=== PATIENT | female | born 1940 | race Caucasian/White ===

== ENCOUNTER 2017-03-17 12:54 | Emergency (ER) | payer MEDICARE, BC ==
[~2017-03-17] VITALS: Ht 162.6 cm; Wt 56.7 kg
[~2017-03-17 12:54] MED LIST: ASPI81TA2 PO; BACL10TA PO; CARB-93 PO; CARV6.25 PO; FLUO-120 PO; LEVO25TA7 PO; MEGE400O PO; ROPI1TAB2 PO; TRAZ-144 PO
--- NOTE | 2017-03-17 13:00 | NUR ---
MADELIN RA [facility] FOR AN EPISODE OF SEVERE SHAKING, NAD NOTED, VSS, PUT ON MONITOR WAITING FOR MD MUKHERJEE.
[2017-03-17 14:02] LABS: BASOPHILS # (AUTO) 0.1 /CMM (0.0-0.2); BASOPHILS % (AUTO) 0.7 % (0.0-2.0); EOSINOPHILS % (AUTO) 0.5 % (0.0-6.0); HEMATOCRIT 35 % (33-45); HEMOGLOBIN 11.6 g/dL (11.5-14.8); LYMPHOCYTES # (AUTO) 1.3 /CMM (0.8-4.8); LYMPHOCYTES % (AUTO) 17.6 % (20.0-44.0); MEAN CORPUSCULAR HEMOGLOBIN 33 PG (26.0-33.0); MEAN CORPUSCULAR HGB CONC 33 g/dl (31.0-36.0); MEAN CORPUSCULAR VOLUME 100 fL (82-100); MONOCYTES # (AUTO) 0.5 /CMM (0.1-1.30); MONOCYTES % (AUTO) 7.2 % (2.0-12.0); NEUTROPHILS # (AUTO) 5.5 /CMM (1.8-8.9); PLATELET COUNT (AUTO) 285 /CMM (150-450); RDW COEFFICIENT OF VARIATION 11.4 (11.5-15.0); RED BLOOD CELL COUNT(AUTO) 3.49 MIL/uL (4.0-5.2); WHITE BLOOD COUNT (AUTO) 7.4 K/uL (4.3-11.0)
--- NOTE | 2017-03-17 14:02 | NUR ---
CALLED [facility], SPOKE WITH JUAREZ, TRANSFERRED CALL TO DICK BRITT)
[2017-03-17 14:13] LABS: CALCIUM, SERUM 8.6 mg/dL (8.5-10.1); CARBON DIOXIDE 30 mmol/L (21-32); CHLORIDE 107 mmol/L (98-107); CREATININE 0.6 mg/dL (0.6-1.3); GLUCOSE 104 mg/dL (74-106); POTASSIUM 3.7 mmol/L (3.5-5.1); SODIUM SERUM 144 mmol/L (136-145); UREA NITROGEN, BLOOD 26 mg/dL (7-18)
[2017-03-17 14:16] LABS: INR 1.02 (0.87-1.13); PROTHROMBIN TIME 10.6 SECS (9.5-12.7)
[2017-03-17 14:23] LABS: TROPONIN I < 0.017 ng/mL (0.00-0.056)
[2017-03-17 14:25] LABS: B-TYPE NATRIURETIC PEPTIDE 264 PG/ML (0-125)
[2017-03-17] MEDS ORDERED: IV NS 0.9% 1,000 ML BAG IV ONE (14:30)
--- NOTE | 2017-03-17 14:45 | NUR ---
PT BACK FROM [facility]
--- NOTE | 2017-03-17 15:18 | NUR ---
URINE SENT TO LAB
[2017-03-17 15:41] LABS: APPEARANCE,URINE Clear (CLEAR); BILIRUBIN,URINE Negative (NEGATIVE); BLOOD, URINE Large Ery/uL (NEGATIVE); COLOR,URINE Yellow (YELLOW); KETONES,URINE Negative (NEGATIVE); LEUKOCYTE ESTERASE ,URINE Negative (NEGATIVE); NITRITE, URINE Negative (NEGATIVE); PROTEIN,URINE Negative (NEGATIVE); UGLUCOSE Negative (NEGATIVE); UROBILINOGEN,URINE 0.2 EU/dL (0.2)
[2017-03-17 15:50] LABS: BACTERIA,URINE None seen /HPF (None Seen); RBC,URINE 51-80 /HPF (0-2); SQUAMOUS EPITHELIAL CELL,UR Few /HPF (None Seen); WBC,URINE 0-3 /HPF (0-3)
[2017-03-17 16:56] VITALS: BP 142/86
== END 2017-03-17 16:57 | disposition home or self-care (01) ==
LOC: ER 12:56
DX: R41.82 Altered mental status, unspecified (principal); G20 Parkinson's disease; G30.8 Other Alzheimer's disease; E03.8 Other specified hypothyroidism; Z88.8 Allergy status to other drugs, medicaments and biological substances; Z79.82 Long term (current) use of aspirin
CPT/HCPCS: 36415; 70450; 71010; 80048; 81001; 83880; 84443; 84484; 85025; 85730; 93005; 96360; 99285; A4606; J7030; 81000-TC; Z7610